=== PATIENT | male | born 1960 | race African-American/Black ===

== ENCOUNTER 2017-06-23 13:53 | Emergency (ER) | payer MEDICAID, OTHER ==
[2017-06-23 14:09] VITALS: BP 232/139
[2017-06-23] MEDS ORDERED: LISINOPRIL 20 MG TABLET ONE (14:38)
[2017-06-23] MEDS ORDERED: HYDROCHLOROTHIAZIDE 25 MG TABLET PO ONE (15:00)
[2017-06-23] MEDS ORDERED: PLEASE ENTER HEIGHT AND WEIGHT MC SCH (15:00)
[2017-06-23] MEDS ORDERED: LISINOPRIL 20 MG TABLET PO ONE (15:00)
== END 2017-06-23 15:17 | disposition home or self-care (01) ==
LOC: ED 15:08
DX: I10 Essential (primary) hypertension (principal); F17.200 Nicotine dependence, unspecified, uncomplicated; E78.00 Pure hypercholesterolemia, unspecified
CPT/HCPCS: 93005; 99283

== ENCOUNTER 2019-02-07 10:10 | Emergency (ER) | payer MEDICAID ==
[~2019-02-07] VITALS: Ht 185.4 cm; Wt 88.0 kg
[2019-02-07 10:15] VITALS: BP 157/76
== END 2019-02-07 11:09 | disposition home or self-care (01) ==
LOC: ED 11:07
DX: M79.645 Pain in left finger(s) (principal); I10 Essential (primary) hypertension; E78.00 Pure hypercholesterolemia, unspecified; F17.200 Nicotine dependence, unspecified, uncomplicated
CPT/HCPCS: 99284

== ENCOUNTER 2019-05-11 23:06 | Emergency (ER) | payer OTHER, MEDICAID ==
[~2019-05-11] VITALS: Ht 185.4 cm; Wt 90.0 kg
[~2019-05-11 23:06] MED LIST: AMLO10TA8 PO; LISI40TA PO
--- NOTE | 2019-05-11 23:20 | NUR ---
RN and midlevel provider to bedside. Received report from [facility] with additional information relayed by law enforcement. Patient in cuffs, reports left sided pain from recent trauma (05/07) related to a syncopal episode. Patient assessed by provider and RN. 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 Patient reports weakness is consistent with his own baseline. Pupils are equal and reactive, speaking clearly. Attached to blood pressure cuff and pulsatile oxygen sensor. Vital signs within normal limits. Phlebotomy to bedside, labs drawn. technical aid to bedside. Patient out of room. Awaiting imaging results.
[2019-05-11] MEDS ORDERED: SODIUM CHLORIDE FLUSH 10ML SYR IVF ONE (23:30)
[2019-05-11 23:33] LABS: ALANINE AMINOTRANSFERASE 17 U/L (12-78); ALBUMIN 3.7 g/dL (3.4-5.0); ANION GAP 6 mmol/L (5-15); CALCIUM 8.6 mg/dL (8.5-10.1); CHLORIDE 112 mmol/L (98-107)
[2019-05-11 23:37] LABS: ALKALINE PHOSPHATASE 98 U/L (45-117); BILIRUBIN,TOTAL 0.2 mg/dL (0.2-1.0); TOTAL PROTEIN 7.6 g/dL (6.4-8.2); TROPONIN I < 0.015 ng/mL (0.000-0.045)
[2019-05-11] MEDS ORDERED: HYDR12.517 PO (23:37)
[2019-05-11 23:43] LABS: BASOPHILS # (AUTO) 0.07 x10^3/uL (0-0.1); BASOPHILS % (AUTO) 1 % (0-1); EOSINOPHILS # (AUTO) 0.28 x10^3/uL (0-0.4); EOSINOPHILS % (AUTO) 4 % (1-7); LYMPHOCYTES # (AUTO) 2.26 x10^3/uL (1-3.4); LYMPHOCYTES % (AUTO) 31 % (22-44); MD NO; MEAN CORPUSCULAR HEMOGLOBIN 27.8 pg (27.5-34.5); MEAN CORPUSCULAR VOLUME 84.2 fL (81-97); MEAN PLATELET VOLUME 8.1 fL (7.4-10.4); MONOCYTES # (AUTO) 0.68 x10^3/uL (0.2-0.8); MONOCYTES % (AUTO) 9 % (2-9); NEUTROPHILS # (AUTO) 4.01 x10^3/uL (1.8-6.8); NEUTROPHILS % (AUTO) 55 % (42-75); PLATELET COUNT 297 x10^3/uL (130-400); RED BLOOD COUNT 5.54 x10^6/uL (4.38-5.82); RED CELL DISTRIBUTION WIDTH 14.5 % (9.4-14.8)
--- NOTE | 2019-05-11 23:51 | NUR ---
Patient back from computed tomography scan. Awaiting results.
[2019-05-12 00:29] VITALS: BP 160/55
== END 2019-05-12 00:41 | disposition home or self-care (01) ==
LOC: ED 23:37
DX: S00.12XA Contusion of left eyelid and periocular area, initial encounter (principal); S40.012A Contusion of left shoulder, initial encounter; M19.112 Post-traumatic osteoarthritis, left shoulder; R42 Dizziness and giddiness; R55 Syncope and collapse; R51 Headache; F17.210 Nicotine dependence, cigarettes, uncomplicated; X58.XXXA Exposure to other specified factors, initial encounter; Y93.89 Activity, other specified; Y92.89 Other specified places as the place of occurrence of the external cause; Y99.8 Other external cause status
CPT/HCPCS: 36415; 70450; 70486; 71045; 72050; 80053; 83880; 84484; 85025; 93005; 99284